=== PATIENT | female | born 1995 | race Caucasian/White ===

== ENCOUNTER 2022-06-27 22:40 | Emergency (ER) | payer BC, MEDICAID ==
[2022-06-27] MEDS ORDERED: Cyclobenzaprine 10 MG Tab PO ONE (23:02)
[2022-06-27] MEDS ORDERED: Ketorolac 30 MG/ML SDV IM ONE (23:02)
[2022-06-27 23:45] VITALS: BP 115/63; PULSE 86
== END 2022-06-28 00:15 | disposition home or self-care (01) ==
LOC: KA.ED 22:40
DX: S22.41XA Multiple fractures of ribs, right side, initial encounter for closed fracture (principal); W22.8XXA Striking against or struck by other objects, initial encounter
CPT/HCPCS: 71111; 96372; 99283; A9270-GY; J1885